=== PATIENT | female | born 1990 | race Caucasian/White ===

== ENCOUNTER 2016-12-26 20:15 | Emergency (ER) | payer SELFPAY ==
[2016-12-26 21:28] VITALS: RESP 18
--- NOTE | 2016-12-26 21:32 | UCPHY ---
H & P Patient Type: New Chief Complaint Nursing Narrative: left foot pain/bruised. No known injury HPI/ROS: CHIEF COMPLAINT: Foot pain HISTORY OF PRESENT ILLNESS: The patient is a 26 year old female presenting with left foot pain for the past 6 days. The lateral aspect of her left foot now has bruising. The patient reports pain with weight bearing that radiates up her leg. No weakness. No numbness. She recalls slipping off a curb a few days ago, but is unsure if she injured her foot at that time. She reports no other injuries. The patient additionally complains of dysuria. No fever or abdominal pain. REVIEW OF SYSTEMS: A ten point review of systems was performed and is negative with the exception of the items mentioned in the HPI. Source: Patient - Personal History LMP (Females 10-55): Over 28 Days Ago Tetanus Vaccine Date: 2013 - Medical/Surgical History Hx Asthma: No Hx Chronic Respiratory Disease: No Hx Diabetes: No Hx Cardiac Disease: No Hx Renal Disease: No Hx Cirrhosis: No Hx Alcoholism: No Hx HIV/AIDS: No Hx Splenectomy or Spleen Trauma: No Other PMH: denies - Family History Significant Family History: No pertinent family hx - Social History Smoking Status: Never smoked - Physical Exam Exam: General: Alert. No acute distress. VS reviewed. Respiratory: Lungs are clear to auscultation; no wheezes, rales, or rhonchi. Cardiovascular: Regular rate and rhythm; no murmur, rub, or gallop. Skin: Warm and dry, no rashes on exposed skin, normal color. Back: Nontender to palpation over the thoracolumbar spine. Extremities: No lower extremity edema, swelling, warmth or redness of left foot. Tenderness along lateral aspect of foot. Mild bruising along lateral aspect of foot. No obvious bony tenderness or deformity. Neurological: Alert and oriented. Moving all four extremities easily and equally. Nl sensation to light touch over left foot and leg. 5/5 dorsi/ EHL/ ankle plantar and dorsiflexion. Psychiatric: Normal affect. Constitutional: Initial Vital Signs Temperature (C) 36.8 C 12/26/16 21:27 Heart Rate 67 12/26/16 21:27 Respiratory Rate 18 12/26/16 21:27 Blood Pressure 109/72 12/26/16 21:27 O2 Sat (%) 99 12/26/16 21:27 O2 Delivery Mode Room Air Allergies/Adverse Reactions: No Known Allergies Allergy (Verified 02/11/16 08:28) Medical Decision Making - Diagnostics Imaging: Study: X-ray of the foot was obtained. Results: No fracture. Images were interpreted by the radiologist, Dr. Ledesma. I viewed the images myself on the PACS system. ED Course/Re-evaluation: Plan for x-ray of the foot. I offered Motrin, but patient declined. I also ordered UA because patient complains of dysuria. 10:00 p.m.: X-ray is negative for fracture. UA shows trace leukocyte esterase and trace of bacteria with 2+ epithelial cells. I do not think that antibiotics are warranted based upon this urinalysis. I discussed findings with the patient. Postop shoe was offered and declined. Symptomatic treatment with over-the- counter medications, Tylenol and ibuprofen, reviewed. Differential Diagnosis: I considered a differential diagnosis that includes but limited to fracture, dislocation, sprain, contusion, abrasion, gout, and infection. Departure - Departure Disposition: Home, Routine, Self-Care Clinical Impression: Foot contusion Qualifiers: Encounter type: initial encounter Laterality: left Qualified Code(s): S90.32XA - Contusion of left foot, initial encounter Condition: Good Instructions: Foot Contusion (ED) Additional Instructions: Rest, ice, and elevate the foot. Adult Pain Control: We recommend Acetaminophen (Tylenol) and Ibuprofen (Motrin,Advil) for pain and fever control. When fever is high or pain severe, both drugs can be used at the same time, but at different intervals. Please note the time differences. Your dose is: Acetaminophen 650mg every 4 to 6 hours Ibuprofen 400mg every 8hours with food. You have been referred to a primary care physician. Followup with this physician if you continue to have pain in your foot. Referrals: Philly Wray MD [Medical Doctor] - As per Instructions - PQRS PQRS Measurement: Does not apply. Report Scribed for: Lupe Kumar Report Scribed by: Germaine Bender Date of Report: 12/26/16 Time of Report: 21:42 Physician Review and Approval Statement: 12/26/16 21:31 Portions of this note were transcribed by the medical insurance collector. I, Dr. Lupe Kumar, personally performed the history, physical exam, and medical decision- making; and confirmed the accuracy of the information in the transcribed note.
[2016-12-26 21:47] LABS: COLOR YELLOW; LEUKOCYTE ESTERASE,URINE TRACE (NEGATIVE); NITRITE,URINE NEGATIVE (NEGATIVE)
[2016-12-26 21:57] LABS: BACTERIA TRACE /hpf (NONE SEEN); MUCUS 2+ /lpf (NONE-1+); RBC,URINE OCCASIONAL /hpf (0-3)
[2016-12-26 22:31] VITALS: BP 112/76; PULSE 68; TEMP 98.1; O2SAT 95
== END 2016-12-26 22:31 | disposition home or self-care (01) ==
LOC: CED 20:15
DX: S90.32XA Contusion of left foot, initial encounter (principal); X58.XXXA Exposure to other specified factors, initial encounter
CPT/HCPCS: 73630-PO; 81003-PO; 81015-PO; G0463-PO

== ENCOUNTER 2017-02-08 09:15 | Emergency (ER) | payer OTHER ==
[2017-02-08 09:36] VITALS: RESP 16; TEMP 99; O2SAT 99
[2017-02-08] MEDS ORDERED: NS 1,000 ML IV ONE (09:41)
[2017-02-08 10:05] LABS: COLOR YELLOW; LEUKOCYTE ESTERASE,URINE 1+ (NEGATIVE); NITRITE,URINE NEGATIVE (NEGATIVE)
[2017-02-08 10:15] LABS: AMORPHOUS 2+ /hpf (NONE-1+); BACTERIA 4+ /hpf (NONE SEEN); MUCUS 3+ /lpf (NONE-1+); WBC,URINE 15-25 /hpf (0-3)
[2017-02-08 10:17] LABS: ANION GAP 11 mEq/L (8-16); CALCIUM 8.8 mg/dL (8.5-10.4); CARBON DIOXIDE 23 mEq/l (22-31); CHLORIDE 103 mEq/L (97-110); CREATININE 0.5 mg/dL (0.6-1.0); GLOMERULAR FILTRATION RATE > 60; GLUCOSE 73 mg/dL (70-100); POTASSIUM 3.9 mEq/L (3.5-5.2); SODIUM 137 mEq/L (134-144)
--- NOTE | 2017-02-08 10:39 | UCPHY ---
H & P Time Seen by Provider: 02/08/17 10:23 Patient Type: Established HPI/ROS: This patient complains of vomiting. She had a positive home test on January 31. She developed vomiting over the past 4 days intermittently with last episode this morning. Currently she has minimal nausea. She has tolerated some p. o. fluids in between vomiting but has not had much of an appetite. She has slight lightheadedness this morning that prompted her visit. She has not noticed any other associated symptoms. She has had 3 prior pregnancies 2 which went without incident 1 of which was associated with hyperemesis. ROS: No fevers or chills. No other constitutional symptoms. HEENT: No URI symptoms pulmonary: No cough. Cardiovascular: No heart palpitations GI: No abdominal pain. : No vaginal bleeding. She has noticed any dysuria. 7 point ROS is otherwise negative. Past Medical/Surgical History: Hyperemesis with 1 prior Smoking Status: Never smoked Physical Exam: General Appearance: Alert, no distress. Eyes: Pupils equal and round no pallor or injection. ENT, Mouth: Mucous membranes moist. Respiratory: There are no retractions, lungs are clear to auscultation. Cardiovascular: Regular rate and rhythm. Gastrointestinal: Normoactive, soft, nontender, no organomegaly Back: No CVA tenderness Neurological: Alert with no focal deficits. Skin: Warm and dry, no rashes. Musculoskeletal: Neck is supple nontender. Extremities are symmetrical, full range of motion. Psychiatric: Mood and affect normal DIFFERENTIAL DIAGNOSIS: After history and physical exam differential diagnosis was considered for hyperemesis gravidarum, rule out UTI Constitutional: Initial Vital Signs Temperature (C) 37.2 C 02/08/17 09:24 Heart Rate 74 02/08/17 09:24 Respiratory Rate 16 02/08/17 09:24 Blood Pressure 91/60 L 02/08/17 09:24 O2 Sat (%) 99 02/08/17 09:24 O2 Delivery Mode Room Air Allergies/Adverse Reactions: No Known Allergies Allergy (Verified 02/08/17 09:35) Home Medications: Medication Instructions Recorded Cephalexin [Keflex (*)] 500 mg PO TID #21 cap 02/08/17 Doxylamine/Pyridoxine HCl (B6) 1 each PO DAILY PRN #20 tablet. 02/08/17 [Chris Hanson 10-10 mg Tablet] MDM/Departure - [facility] ED Course/Re-evaluation: Patient is treated with IV normal saline bolus x1 L. I counseled regarding her urine findings with plan to go home Diclegis & start Keflex. Clinically, this patient appears well without evidence to suggest pyelonephritis , significant dehydration or other complicating factors. Her urinalysis suggests cystitis though she does have significant symptoms will treat her with Keflex currently. Some of her vomiting may be attributable to her UTI. - Depart Disposition: Home, Routine, Self-Care Clinical Impression: Cystitis, First trimester Vomiting Qualifiers: Vomiting type: unspecified Vomiting Intractability: non-intractable Nausea presence: with nausea Qualified Code(s): R11.2 - Nausea with vomiting, unspecified Condition: Good Instructions: Urinary Tract Infection in Women (ED), Acute Nausea and Vomiting (ED) Additional Instructions: Diagnosis: Vomiting 2. Bladder infection 3. 1st trimester Plan: Take 1 diclegis tab today. Then wait an hour to before trying oral intake. Have a little light food before taking the Keflex antibiotic. Take another diclegis tab at bedtime and then on subsequent days take 2 at bedtime until your nausea resolved Return for any significant worsening despite treatment plan Prescriptions: Cephalexin [Keflex (*)] 500 mg PO TID #21 cap Doxylamine/Pyridoxine HCl (B6) [Diclegis Dr 10-10 mg Tablet] 1 each PO DAILY PRN #[address] tablet[address] ROSADO Reason: nausea Referrals: Sharmaine Santo MD [Primary Care Provider] - As per Instructions - PQRS PQRS Measurement: NA
[2017-02-08 10:55] VITALS: BP 98/63; PULSE 63
== END 2017-02-08 10:50 | disposition home or self-care (01) ==
LOC: CED 09:15
DX: O23.10 Infections of bladder in pregnancy, unspecified trimester (principal); O21.9 Vomiting of pregnancy, unspecified; Z3A.00 Weeks of gestation of pregnancy not specified
CPT/HCPCS: 80048-PO; 81003-PO; 81015-PO; 96360-PO; 99214-PO; G0463-PO

== ENCOUNTER 2017-02-12 12:11 | Emergency (ER) | payer OTHER ==
[2017-02-12] MEDS ORDERED: NS 1,000 ML IV ONE ×2 (13:00→15:14)
[2017-02-12 14:25] LABS: % IMMATURE GRANULYOCYTES 0.3 % (0.0-1.1); ABSOLUTE IMMATURE GRANULOCYTES 0.04 10^3/uL (0.00-0.10); ADD DIFF? NO; ADD MORPH? NO; ADD SCAN? NO; ATYPICAL LYMPHOCYTE FLAG 0 (0-99); FRAGMENT RBC FLAG 0 (0-99); HEMATOCRIT 38.5 % (38.0-47.0); HEMOGLOBIN 13.7 g/dL (12.6-16.3); LEFT SHIFT FLG 0 (0-99); LIPEMIA HEMOLYSIS FLAG 90 (0-99); MEAN CELL HEMOGLOBIN 33.9 pg (27.9-34.1); MEAN CELL HEMOGLOBIN CONCENTR. 35.6 g/dL (32.4-36.7); MEAN CELL VOLUME 95.3 fL (81.5-99.8); MEAN PLATELET VOLUME 10.3 fL (8.7-11.7); PLATELET CLUMPS FLAG 0 (0-99); PLATELET COUNT 301 10^3/uL (150-400); RED BLOOD CELL COUNT 4.04 10^6/uL (4.18-5.33); RED CELL DISTRIBUTION WIDTH 12.2 % (11.5-15.2)
[2017-02-12 14:34] LABS: ANION GAP 16 mEq/L (8-16); CALCIUM 9.1 mg/dL (8.5-10.4); CARBON DIOXIDE 18 mEq/l (22-31); CHLORIDE 103 mEq/L (97-110); CREATININE 0.4 mg/dL (0.6-1.0); GLOMERULAR FILTRATION RATE > 60; GLUCOSE 75 mg/dL (70-100); POTASSIUM 3.9 mEq/L (3.5-5.2); SODIUM 137 mEq/L (134-144)
[2017-02-12 15:04] LABS: COLOR YELLOW; LEUKOCYTE ESTERASE,URINE NEGATIVE (NEGATIVE); NITRITE,URINE NEGATIVE (NEGATIVE)
--- NOTE | 2017-02-12 15:17 | UCPHY ---
H & P Patient Type: Established Chief Complaint Nursing Narrative: FATIGUED AND WEAKNESS FOR 2 DAYS, 6 WEEKS , STATES SEEN HERE FOR NAUSEA ON 02/08. DENIES URINARY COMPLAINTS, DENIES V/D. DENIES COUGH OR CONGESTION. REPORTS LOW PO INTAKE AND FLUIDS Time Seen by Provider: 02/12/17 13:54 HPI/ROS: I saw this pt. here 4 days ago for hyperemesis with dehydration & cystitis. She reports compliance with the Keflex index lesions with resolution of vomiting. However she has anorexia and has had difficulty tolerating fluids due to some ongoing nausea. Today she started feeling generalized weakness associated with the symptoms and came in for a recheck. She notes no exacerbating factors other than some improvement with the diclegis ROS: No fevers or chills. She denies any HEENT complaints. Pulmonary: No shortness of breath cardiovascular: No heart palpitations. GI: No abdominal pain. : No vaginal bleeding. No significant lower abdominal pain. 10 point ROS is otherwise negative.. Source: Patient Exam Limitations: No limitations - Personal History LMP (Females 10-55): Tetanus Vaccine Date: 2013 - Medical/Surgical History Hx Asthma: No Hx Chronic Respiratory Disease: No Hx Diabetes: No Hx Cardiac Disease: No Hx Renal Disease: No Hx Cirrhosis: No Hx Alcoholism: No Hx HIV/AIDS: No Hx Splenectomy or Spleen Trauma: No Other PMH: denies - Family History Significant Family History: No pertinent family hx - Social History Smoking Status: Never smoked Alcohol Use: None Drug Use: None - Physical Exam Exam: General Appearance: Alert, no distress. Eyes: Pupils equal and round no pallor or injection. ENT, Mouth: Mucous membranes dry. Respiratory: There are no retractions, lungs are clear to auscultation. Cardiovascular: Regular rate and rhythm. Gastrointestinal: Abdomen is soft and nontender, no masses, bowel sounds normal. Back no CVA tenderness Neurological: Alert with no deficits Skin: Warm and dry, no rashes. Musculoskeletal: Neck is supple nontender. Extremities are symmetrical, full range of motion. Psychiatric: Mood and affect normal DIFFERENTIAL DIAGNOSIS: After history and physical exam differential diagnosis was considered for ongoing UTI, nausea of , dehydration, rule out metabolic abnormality Constitutional: Initial Vital Signs Temperature (C) 37.0 C 02/12/17 12:55 Heart Rate 78 02/12/17 12:55 Respiratory Rate 18 02/12/17 12:55 Blood Pressure 105/71 02/12/17 12:55 O2 Sat (%) 96 02/12/17 12:55 O2 Delivery Mode Room Air Allergies/Adverse Reactions: No Known Allergies Allergy (Verified 02/12/17 13:10) Home Medications: Medication Instructions Recorded Doxylamine/Pyridoxine HCl (B6) 1 each PO DAILY PRN #20 tablet. 02/08/17 [Chris Hanson 10-10 mg Tablet] Nitrofurantoin Macrobid [Macrobid 100 mg PO BID #10 cap 02/12/17 100 mg (RX)] Medical Decision Making ED Course/Re-evaluation: IV normal saline bolus x2 L Urinalysis is consistent with UTI. Clinically her presentation is consistent with cystitis unresponsive to Keflex complicated by likely nausea and anorexia. She has associated dehydration. She feels well after treatment here. I counseled her regarding the plan to switch from Keflex to Macrobid. Rocephin IV - Data Points Laboratory Results: Laboratory Results 02/12/17 14:16 02/12/17 14:16 02/12/17 02/12/17 02/12/17 14:35 14:16 14:16 WBC 12.06 10^3/uL H 10^3/uL (3.80-9.50) RBC 4.04 10^6/uL L 10^6/uL (4.18-5.33) Hgb 13.7 g/dL g/dL (12.6-16.3) Hct 38.5 % % (38.0-47.0) MCV 95.3 fL fL (81.5-99.8) MCH 33.9 pg pg (27.9-34.1) MCHC 35.6 g/dL g/dL (32.4-36.7) RDW 12.2 % % (11.5-15.2) Plt Count 301 10^3/uL 10^3/uL (150-400) MPV 10.3 fL fL (8.7-11.7) Neut % (Auto) 84.3 % H % (39.3-74.2) Lymph % (Auto) 9.8 % L % (15.0-45.0) [place] % (Auto) 5.1 % % (4.5-13.0) Eos % (Auto) 0.2 % L % (0.6-7.6) Baso % (Auto) 0.3 % % (0.3-1.7) Nucleat RBC Rel Count 0.0 % % (0.0-0.2) Absolute Neuts (auto) 10.16 10^3/uL H 10^3/uL (1.70-6.50) Absolute Lymphs (auto) 1.18 10^3/uL 10^3/uL (1.00-3.00) Absolute Monos (auto) 0.61 10^3/uL 10^3/uL (0.30-0.80) Absolute Eos (auto) 0.03 10^3/uL 10^3/uL (0.03-0.40) Absolute Basos (auto) 0.04 10^3/uL 10^3/uL (0.02-0.10) Absolute Nucleated RBC 0.00 10^3/uL 10^3/uL (0-0.01) Immature Gran % 0.3 % % (0.0-1.1) Immature Gran # 0.04 10^3/uL 10^3/uL (0.00-0.10) Sodium 137 mEq/L mEq/L (134-144) Potassium 3.9 mEq/L mEq/L (3.5-5.2) Chloride 103 mEq/L mEq/L (97-110) Carbon Dioxide 18 mEq/l L mEq/l (22-31) Anion Gap 16 mEq/L mEq/L (8-16) BUN 8 mg/dL mg/dL (7-23) Creatinine 0.4 mg/dL L mg/dL (0.6-1.0) Estimated GFR > 60 Glucose 75 mg/dL mg/dL (70-100) Calcium 9.1 mg/dL mg/dL (8.5-10.4) Urine Color YELLOW Urine Appearance CLEAR Urine pH 6.0 (5.0-7.5) Ur Specific [place] >= 1.030 (1.002-1.030) Urine Protein TRACE H (NEGATIVE) Urine Ketones 3+ H (NEGATIVE) Urine Blood NEGATIVE (NEGATIVE) Urine Nitrate NEGATIVE (NEGATIVE) Urine Bilirubin POSITIVE H (NEGATIVE) Urine Urobilinogen 0.2 EU EU (0.2-1.0) Ur Leukocyte Esterase NEGATIVE (NEGATIVE) Urine RBC 1-3 /hpf /hpf (0-3) Urine WBC 25-50 /hpf H /hpf (0-3) Ur Epithelial Cells 3+ /lpf H /lpf (NONE-1+) Urine Bacteria 2+ /hpf H /hpf (NONE SEEN) Urine Mucus 3+ /lpf H /lpf (NONE-1+) Ur Culture Indicated? INDICATED H (NI) Urine Glucose NEGATIVE (NEGATIVE) Medications Given: Discontinued Medications Sodium Chloride (Ns) 1,000 mls @ 0 mls/hr IV ONCE ONE PRN Reason: Wide Open Stop: 02/12/17 13:01 Last Admin: 02/12/17 13:10 Dose: 1,000 mls Sodium Chloride (Ns) 1,000 mls @ 0 mls/hr IV ONCE ONE PRN Reason: Wide Open Stop: 02/12/17 15:15 Last Admin: 02/12/17 15:30 Dose: 1,000 mls Departure - Departure Disposition: Home, Routine, Self-Care Clinical Impression: Dehydration, Nausea, First trimester , Cystitis Condition: Good Instructions: Dehydration (ED), Urinary Tract Infection in Women (ED) Additional Instructions: Diagnoses: 1. Dehydration 2. Nausea 3. 1st trimester Your labs appeared good today despite dehydration. It appears the bladder infection is responding to the Keflex antibiotic. Take 1 more day-total 5 days of Keflex on stop the Keflex antibiotic. Drink plenty fluids Continue your diet lesion is Try to drink fluids even if you do not have an appetite to maintain hydration status. Call the OBGYN office to try to be seen more quickly than the currently scheduled appointment. Go the emergency department for any significant worsening despite the treatment plan. Referrals: Sharmaine Santo MD [Primary Care Provider] - As per Instructions Prescriptions: Nitrofurantoin Macrobid [Macrobid 100 mg (RX)] 100 mg PO BID #10 cap - PQRS PQRS Measurement: NA
[2017-02-12 15:23] LABS: WBC,URINE 25-50 /hpf (0-3)
[2017-02-12 15:24] LABS: BACTERIA 2+ /hpf (NONE SEEN); MUCUS 3+ /lpf (NONE-1+)
[2017-02-12 16:50] VITALS: BP 100/63; PULSE 82; RESP 16; TEMP 98.8; O2SAT 99
== END 2017-02-12 16:51 | disposition home or self-care (01) ==
LOC: CED 12:11
DX: E86.0 Dehydration (principal); R11.0 Nausea; R53.83 Other fatigue; R53.1 Weakness; R63.0 Anorexia; N30.90 Cystitis, unspecified without hematuria; Z33.1 Pregnant state, incidental
CPT/HCPCS: 80048-PO; 81003-PO; 81015-PO; 85025-PO; 96361-PO; 96365-PO; G0463-PO; J0696

== ENCOUNTER 2017-07-31 22:04 | Emergency (ER) | payer SELFPAY ==
--- NOTE | 2017-07-31 22:05 | EDPHY ---
H & P HPI/ROS: HPI CHIEF COMPLAINT: Urinary frequency, back pain HISTORY OF PRESENT ILLNESS: This patient is a very pleasant 26-year-old female denies any significant medical history denies taking any daily medications, denies being , she presents emergency room with urinary frequency. She states she has been having frequency without dysuria intermittently over the past week. It additionally she noticed some mild back pain bilateral CVA regions low back. No midline pain. No fever. No abdominal pain no vomiting. No chest pain or shortness of breath. Main concern is urinary frequency she thinks she may have a UTI. Past Medical History: Denies medical history Past Surgical History: Denies recent surgery Social History: Denies daily use of drugs alcohol tobacco products. Family History: Noncontributory ROS REVIEW OF SYSTEMS: A comprehensive 10 point review of systems is otherwise negative aside from elements mentioned in the history of present illness. Exam Constitutional appears well nontoxic, triage nursing summary reviewed, vital signs reviewed, awake/alert. Vital signs stable. Nontoxic appearing. No fever. Eyes normal conjunctivae and sclera, EOMI, PERRLA. HENT normal inspection, atraumatic, moist mucus membranes, no epistaxis, neck supple/ no meningismus, no raccoon eyes. Respiratory clear to auscultation bilaterally, normal breath sounds, no respiratory distress, no wheezing. Cardiovascular rate normal, regular rhythm, no murmur, no edema, distal pulses normal. Gastrointestinal soft, non-tender, no rebound, no guarding, normal bowel sounds, no distension, no pulsatile mass. Genitourinary no significant CVA tenderness on exam. Musculoskeletal no midline vertebral tenderness, full range of motion, no calf swelling, no tenderness of extremities, no meningismus, good pulses, neurovascularly intact. Skin pink, warm, & dry, no rash, skin atraumatic. Neurologic awake, alert and oriented x 3, AAOx3, moves all 4 extremities equally, motor intact, sensory intact, CN II-XII intact, normal cerebellar, normal vision, normal speech. Psychiatric normal mood/affect. Heme/Lymph/Immune no lymphadenopathy. Differential Diagnosis: Includes but is not limited to in a particular order, UTI, cystitis, pyelonephritis. Muscle skeletal back pain Medical Decision Making: Plan for this patient check UA. Re-evaluation: 2251: I did go speak with the patient again her urinalysis does not indicate any UTI. It is a clean UA. She is convinced that with urinary frequency and back pain that she has another infection. We discussed treatment options. I recommend that she hold off on antibiotics unless she gets worse this includes worsening urinary frequency dysuria fever back pain. I did reexamine her she has some musculoskeletal back pain on exam. There is no midline vertebral tenderness. However she does have some paravertebral tenderness down her lumbar spine. Really no CVA tenderness plan will be for a prescription for an antibiotic in case she has worsening urinary symptoms. Also recommend anti- inflammatory pain medicine for her back pain she has no abdominal pain she denies chest pain or shortness of breath. I do recommend if she has worsening symptoms includes worsening back pain, fever, vomiting or feels worse she should return to the emergency room. As of right now think she has musculoskeletal back pain. Would benefit from NSAIDs. I do not feel that she has urinary tract infection however patient complains of urinary frequency and feeling just like she has a previous infection. She is requesting antibiotics. Will give her prescription for antibiotics to hold. Start taking if worse. Return precautions given she understands. Source: Patient - Personal History Tetanus Vaccine Date: 2013 - Medical/Surgical History Hx Asthma: No Hx Chronic Respiratory Disease: No Hx Diabetes: No Hx Cardiac Disease: No Hx Renal Disease: No Hx Cirrhosis: No Hx Alcoholism: No Hx HIV/AIDS: No Hx Splenectomy or Spleen Trauma: No Other PMH: denies - Social History Smoking Status: Never smoked Constitutional: Initial Vital Signs Heart Rate 90 07/31/17 22:09 Respiratory Rate 18 07/31/17 22:09 Blood Pressure 122/77 H 07/31/17 22:09 O2 Sat (%) 95 07/31/17 22:09 O2 Delivery Mode Room Air Allergies/Adverse Reactions: No Known Allergies Allergy (Verified 07/31/17 22:08) Home Medications: Medication Instructions Recorded Cephalexin [Keflex] 500 mg PO Q6H #28 cap 07/31/17 Ibuprofen [Motrin (*)] 800 mg PO Q6-8PRN #10 tab 07/31/17 Phenazopyridine HCl [Pyridium] 200 mg PO TID #15 tab 07/31/17 Medical Decision Making - Data Points Laboratory Results: 07/31/17 22:35 Urine Color YELLOW Urine Appearance CLEAR Urine pH 6.0 (5.0-7.5) Ur Specific [place] 1.010 (1.002-1.030) Urine Protein NEGATIVE (NEGATIVE) Urine Ketones NEGATIVE (NEGATIVE) Urine Blood NEGATIVE (NEGATIVE) Urine Nitrate NEGATIVE (NEGATIVE) Urine Bilirubin NEGATIVE (NEGATIVE) Urine Urobilinogen 0.2 EU EU (0.2-1.0) Ur Leukocyte Esterase NEGATIVE (NEGATIVE) Urine Glucose NEGATIVE (NEGATIVE) Departure - Departure Disposition: Home, Routine, Self-Care Clinical Impression: Back pain Qualifiers: Back pain location: low back pain Chronicity: acute Back pain laterality: bilateral Sciatica presence: without sciatica Qualified Code(s): M54.5 - Low back pain Condition: Good Instructions: Low Back Strain (ED), Acute Low Back Pain (ED) Additional Instructions: 1.Make sure to drink lots of fluids. 2. Stay well-hydrated. 3. Return to the ER if worsening symptoms, this includes, Fever, Vomiting, worsening symptoms. 4. Heating pad or ice pack on her back. You may alternate these. 5. Return of worsening back pain. Referrals: Sharmaine Santo MD [Primary Care Provider] - As per Instructions Prescriptions: Cephalexin [Keflex] 500 mg PO Q6H #28 cap Ibuprofen [Motrin (*)] 800 mg PO Q6-8PRN #10 tab Phenazopyridine HCl [Pyridium] 200 mg PO TID #15 tab
[2017-07-31 22:17] VITALS: BP 122/77; PULSE 90; RESP 18; O2SAT 95
[2017-07-31 22:41] LABS: COLOR YELLOW; LEUKOCYTE ESTERASE,URINE NEGATIVE (NEGATIVE); NITRITE,URINE NEGATIVE (NEGATIVE)
[2017-07-31] MEDS ORDERED: IBUPROFEN 800 MG TAB PO ONE (22:51)
== END 2017-07-31 23:02 | disposition home or self-care (01) ==
LOC: CED 22:04
DX: M54.5 Low back pain (principal)
CPT/HCPCS: 81003-PO

== ENCOUNTER 2018-10-22 17:02 | Emergency (ER) | payer BC ==
[2018-10-22 17:14] VITALS: BP 111/71
[2018-10-22] MEDS ORDERED: NITROFURANTOIN MACROBID 100 MG CAP PO ONE (17:22)
--- NOTE | 2018-10-22 17:25 | EDPHY ---
H & P Stated Complaint: dysuria started yesterday, nausea, 11 weeks preg Time Seen by Provider: 10/22/18 17:19 HPI/ROS: CHIEF COMPLAINT: Dysuria HISTORY OF PRESENT ILLNESS: The patient is a 27-year-old female who is 11 weeks gestational age who developed some dysuria and frequent urination yesterday. Slight flank pain. No fever. Mild nausea associated with her but no vomiting. No diarrhea. No abdominal pain. She has been trying to hydrate well. No abdominal cramping. Severity: Moderate Modifying factors: None REVIEW OF SYSTEMS: Constitutional: denies: chills, fever, recent illness, recent injury EENTM: denies: blurred vision, double vision, nose congestion Respiratory: denies: cough, shortness of breath Cardiac: denies: chest pain, irregular heart rate, lightheadedness, palpitations Gastrointestinal/Abdominal: denies: abdominal pain, diarrhea, nausea, vomiting, blood streaked stools Genitourinary: See HPI Musculoskeletal: denies: joint pain, muscle pain Skin: denies: lesions, rash, jaundice, bruising Neurological: denies: headache, numbness, paresthesia, tingling, dizziness, weakness Hematologic/Lymphatic: denies: blood clots, easy bleeding, easy bruising Immunologic/allergic: denies: HIV/AIDS, transplant 10 systems reviewed and negative except as noted EXAM: GENERAL: Well-appearing, well-nourished and in no acute distress. HEAD: Atraumatic, normocephalic. EYES: Pupils equal round and reactive to light, extraocular movements intact, sclera anicteric, conjunctiva are normal. ENT: TMs normal, nares patent, oropharynx clear without exudates. Moist mucous membranes. NECK: Normal range of motion, supple without lymphadenopathy or JVD. LUNGS: Breath sounds clear to auscultation bilaterally and equal. No wheezes rales or rhonchi. HEART: Regular rate and rhythm without murmurs, rubs or gallops. ABDOMEN: Gravid uterus, below the umbilicus, normoactive bowel sounds. No guarding, no rebound. No masses appreciated. BACK: No CVA tenderness, no spinal tenderness, step-offs or deformities EXTREMITIES: Normal range of motion, no pitting or edema. No clubbing or cyanosis. NEUROLOGICAL: Cranial nerves II through XII grossly intact. Normal speech, normal gait. 5/5 strength, normal movement in all extremities, normal sensation , normal reflexes PSYCH: Normal mood, normal affect. SKIN: Warm, dry, normal turgor, no visible rashes or lesions. Source: Patient Exam Limitations: No limitations - Personal History LMP (Females 10-55): Tetanus Vaccine Date: 2013 - Medical/Surgical History Hx Asthma: No Hx Chronic Respiratory Disease: No Hx Diabetes: No Hx Cardiac Disease: No Hx Renal Disease: No Hx Cirrhosis: No Hx Alcoholism: No Hx HIV/AIDS: No Hx Splenectomy or Spleen Trauma: No Other PMH: denies, - Family History Significant Family History: No pertinent family hx - Social History Smoking Status: Never smoked Alcohol Use: Sober Drug Use: None Constitutional: Initial Vital Signs Temperature (C) 36.5 C 10/22/18 17:11 Heart Rate 75 10/22/18 17:11 Respiratory Rate 18 10/22/18 17:11 Blood Pressure 111/71 10/22/18 17:11 O2 Sat (%) 95 10/22/18 17:11 O2 Delivery Mode Room Air Allergies/Adverse Reactions: nitrofurantoin Allergy (Mild, Verified 10/22/18 21:24) Itching Home Medications: Medication Instructions Recorded Cephalexin [Keflex] 500 mg PO TID #21 cap 10/22/18 Nitrofurantoin Monohyd/M-Cryst 100 mg PO BID #20 cap 10/22/18 [Nitrofurantoin [place]-Macrocrystal] 10/22/18 Medical Decision Making ED Course/Re-evaluation: The patient urinalysis is positive. Will start on Macrobid. She declines anti nausea medication. She declines pain medication. We discussed follow-up with her primary in the next couple of days if she was not improving. We also discussed indications for returning to the emergency department. She feels comfortable with this plan and is eager to go home. heart tones 130. 9:16 p.m. the patient called in and stated that she was having some diffuse body itching few hours after taking the Macrobid here in the ER. No hives. No difficulty breathing. We advised her to take Benadryl and to return to the ER for symptoms worsen. Will also call in a prescription for Keflex and advised her to stop taking Macrobid. It is unclear whether not this truly represents an allergic reaction. Differential Diagnosis: Partial list of the Differential diagnosis considered include but were not limited to; urinary tract infection, pyelonephritis, and although unlikely based on the history and physical exam, I also considered kidney stone , miscarriage, sepsis. I discussed these differential diagnoses and the plan with the patient as well as the usual and expected course. The patient understands that the diagnosis is provisional and that in medicine we are not always correct and that further workup is often warranted. Usual and customary warnings were given. All of the patient's questions were answered. The patient was instructed to return to the emergency department should the symptoms at all worsen or return, otherwise to followup with the physician as we discussed. - Data Points Medications Given: Discontinued Medications Nitrofurantoin Macrocrystals (Macrobid) 100 mg PO EDNOW ONE PRN Reason: Protocol Stop: 10/22/18 17:23 Last Admin: 10/22/18 17:29 Dose: 100 mg Point of Care Test Results: Urine Dip Collection Date 10/22/18 Collection Time 17:15 Specific [place] (1.002-1.030) 1.030 PH (5.0-7.5) 6.0 Leukocytes (Negative) 1+ Nitrites (Negative) Positive Protein (Negative) Negative Glucose (Negative) Negative Ketones (Negative) Negative Urobilnogen (0.2-1.0 EU) 0.2 Bilirubin (Negative) Negative Blood (Negative) Trace Departure - Departure Disposition: Home, Routine, Self-Care Clinical Impression: Urinary tract infection Qualifiers: Urinary tract infection type: acute cystitis Hematuria presence: without hematuria Qualified Code(s): N30.00 - Acute cystitis without hematuria Qualifiers: Weeks of gestation: 11 weeks Qualified Code(s): Z3A.11 - 11 weeks gestation of Condition: Fair Instructions: (ED), Urinary Tract Infection in (ED) Referrals: Sharmaine Santo MD [Medical Doctor] - 2-3 days, if not improved Prescriptions: Cephalexin [Keflex] 500 mg PO TID #21 cap Nitrofurantoin Monohyd/M-Cryst [Nitrofurantoin [place]-Macrocrystal] 100 mg PO BID #20 cap
== END 2018-10-22 17:34 | disposition home or self-care (01) ==
LOC: CED 17:02
DX: O23.11 Infections of bladder in pregnancy, first trimester (principal); Z3A.11 11 weeks gestation of pregnancy
CPT/HCPCS: 99284-ER